=== PATIENT | female | born 1935 | race Caucasian/White ===

== ENCOUNTER → 2018-06-24 11:15 | Outpatient (CLI) | payer MEDICARE, SELFPAY ==
--- NOTE | 2018-06-24 | DI.MG.S_ITS ---
BILATERAL DIGITAL SCREENING MAMMOGRAM 3D/2D WITH CAD: 06/24/2018 CLINICAL: Routine screening. Comparison is made to exams dated: 11/16/2014 mammogram, 11/13/2012 mammogram, and 10/13/2011 mammogram - [facility]. The tissue of both breasts is predominantly fatty. Current study was also evaluated with a Computer Aided Detection (CAD) system. There are benign calcifications in the right breast. There also are benign vascular calcifications in the left breast. There is a mole marker on the left breast. No significant masses, calcifications, or other findings are seen in either breast. There has been no significant interval change. IMPRESSION: BENIGN There is no mammographic evidence of malignancy. A 1 year screening mammogram is recommended. This exam was interpreted at Station ID: [id number]. NOTE: For mammograms, a report in lay terms will be sent to the patient. Approximately 15% of breast malignancies will not be visualized mammographically. In the management of a palpable breast mass, a negative mammogram must not discourage biopsy of a clinically suspicious lesion. Electronically Signed By: Andrew meneses/nick:06/25/2018 03:34:40 letter sent: Normal Exam ACR BI-RADS Category 2: Benign Finding(s) 3342F
== END ==
PROVIDERS: PCP Internal Medicine; Visit Provider Internal Medicine
DX: Z12.31 Encounter for screening mammogram for malignant neoplasm of breast (principal)
CPT/HCPCS: 77063; 77067

== ENCOUNTER → 2019-01-15 09:09 | Outpatient (CLI) | payer MEDICARE, SELFPAY ==
--- NOTE | 2019-01-15 | DI.ECHO.S_ITS ---
[facility]---------+ [facility] +---------+ : : [address] : : : : [id number] : : : : Phone: [phone]---------+ Echocardiogram Report + + :Name: BONNIE BARRIOS Study Date: 01/15/2019 Height: 65 in : :[facility] Weight: 150 lb : : Gender: Female BSA: 1.8 m2 : :: 1935 Age: 83 yrs BP: 122/70 mmHg: :Reason For Study: MURMUR : : Performed By: Iona Mcmahan : :Referring: NEGAR GALICIA L : + + Interpretation Summary 1) Normal left ventricular thickness, size, wall motion, and systolic function (EF 60-65%). 2) Normal right ventricular size and function. 3) Age related calcification of the aortic valve but no significant valvular stenosis or regurgitation present. 4) No prior Echo available for comparison. Procedure: A two-dimensional transthoracic echocardiogram with color flow and Doppler was performed. The study quality was technically adequate. There is no prior echocardiogram noted for this patient. The heart rate ranged between 62-68 bpm during the study. Left Ventricle: The left ventricle is normal in size, wall thickness, and systolic function without any focal wall motion abnormalities. A false chord is noted (normal variant). The ejection fraction is estimated to be 60-65%. Right Ventricle: The right ventricle is normal in size and function. Atria: The left atrial size is normal. Right atrium is small. There is no Doppler evidence for an interatrial shunt. Mitral Valve: The mitral valve leaflets appear mildly thickened, but open well. There is trace mitral regurgitation. Aortic Valve: The aortic valve is trileaflet. The aortic valve is mildly calcified. There is no aortic valve stenosis. No aortic regurgitation is present. Tricuspid Valve: The tricuspid valve is normal in structure and function. There is a trace or physiologic amount of tricuspid regurgitation. The right ventricular systolic pressure is estimated to be at least 23 mmHg based on an estimated right atrial pressure of 3 mm Hg. Pulmonic Valve: The pulmonic valve leaflets are thin and pliable; valve motion is normal. There is a trace or physiologic amount of pulmonic regurgitation. Great Vessels: The aortic root is normal size. The ascending aorta is normal in size. The aortic arch is normal in size. The pulmonary artery is not well visualized, but is probably normal size. The IVC is of normal diameter and collapses less than 50% with a sniff. This suggests a right atrial pressure of 8 mm Hg. Pericardium/ Pleura There is no pericardial effusion. There is no pleural effusion. MMode/2D Measurements & Calculations LVIDd: 3.5 cm LVOT diam: 2.0 cm LVIDs: 2.3 cm Ao root diam: 2.8 cm FS: 35.2 % asc Aorta Diam: 3.0 cm IVSd: 0.81 cm Ao Arch Diam (distal): 2.6 cm LVPWd: 0.61 cm LV samano. diameter/BSA (cm/m^2): 2.0 LV sys. diameter/BSA (cm/m^2): 1.3 LA A2 area: 14.0 cm2 RA long axis: 3.5 cm LA A4 area: 13.2 cm2 RA area: 9.0 cm2 LA length (vol): 4.2 cm RA vol: 19.3 ml LA vol: 37.1 ml RA : 11.0 ml/m2 LA vol index: 21.2 ml/m2 IVC diam: 1.2 cm RVD1 (basal): 3.2 cm TAPSE: 2.2 cm Doppler Measurements & Calculations Ao V2 max: 116.1 cm/sec LVOT Max Ludwig: 101.7 cm/sec Ao V2 mean: 79.4 cm/sec LV V1 max P.1 mmHg Ao max P.4 mmHg LV V1 VTI: 23.4 cm Ao mean P.8 mmHg DALILA(I,D): 2.7 cm2 Ao V2 VTI: 26.4 cm DALILA(V,D): 2.7 cm2 sev ratio: 0.89 DALILA indexed to BSA (cm^2/m^2): 1.5 MV E max ludwig: 70.1 cm/sec TR max ludwig: 225.0 cm/sec MV A max ludwig: 104.6 cm/sec TR max P.3 mmHg MV E/A: 0.67 Med Peak E' Ludwig: 6.2 cm/sec E/E' med: 11.3 Lat Peak E' Ludwig: 7.9 cm/sec E/E' lat: 8.9 E/e' average: 10.1 MV dec time: 0.25 sec SV(LVOT): 71.5 ml Reading Physician:02:04 PM
== END ==
PROVIDERS: PCP Internal Medicine; Visit Provider Internal Medicine
DX: R01.1 Cardiac murmur, unspecified (principal)
CPT/HCPCS: 93306

== ENCOUNTER → 2019-06-11 07:30 | Outpatient (CLI) | payer MEDICARE, SELFPAY ==
[2019-06-11 07:55] LABS: Add Manual Diff / Slide Review NO; Basophils Absolute Auto 0 /uL (0-100); Basophils Percent Auto 0.6 % (0-2); Eosinophils Absolute Auto 500 /uL (0-450); Eosinophils Percent Auto 7.2 % (2-4); Hematocrit 44.9 % (36-46); Hemoglobin 14.7 g/dL (12.0-16.0); Lymphocytes Absolute Auto 2300 /uL (1100-4500); Lymphocytes Percent Auto 32.6 % (25-40); Mean Corpuscular HGB Conc 32.6 % (30-36); Mean Corpuscular Hemoglobin 30.4 PG (26-34); Mean Corpuscular Volume 93.2 fL (80-100); Monocytes Absolute Auto 400 /uL (0-900); Neutrophils Absolute Auto 3800 /uL (1500-7000); Neutrophils Percent Auto 53.6 % (50-75); Platelet Count 263 X10^3/uL (150-400); Red Blood Cell Count 4.82 X10^6/uL (4.0-5.2); Red Cell Distribution Width 13.9 % (11.6-14.8)
[2019-06-11 08:06] LABS: Alanine Aminotransferase 32 IU/L (9-52); Albumin 4.1 g/dL (3.5-5.0); Albumin Globulin Ratio 1.4 (1.0-2.8); Alkaline Phosphatase 73 U/L (38-126); Aspartate Aminotransferase 28 IU/L (14-36); BUN Creatinine Ratio 21.4 (6-22); Bilirubin Total 0.5 mg/dL (0.2-1.3); Blood Urea Nitrogen 15 mg/dL (7-17); Calcium 9.4 mg/dL (8.4-10.2); Carbon Dioxide 29 mmol/L (22-32); Chloride 105 mmol/L (98-107); Cholesterol 158 mg/dL (140-199); Estimated Glomerular Filt Rate > 60.0 mL/min (>60); Glucose 100 mg/dL (80-110); HDL Cholesterol 58 mg/dL (40-60); HEMOLYSIS < 15 (0-50); LDL Cholesterol Calculated 83 mg/dL (<100); Potassium 4.5 mmol/L (3.4-5.1); Sodium 141 mmol/L (137-145); Total Protein 7.1 g/dL (6.3-8.2); Triglycerides 84 mg/dL (35-150)
[2019-06-11 08:36] LABS: Thyroid Stimulating Hormone 2.15 uIU/mL (0.47-4.68)
== END ==
PROVIDERS: PCP Nurse Practitioner; Visit Provider Nurse Practitioner
DX: E03.9 Hypothyroidism, unspecified (principal); E78.00 Pure hypercholesterolemia, unspecified
CPT/HCPCS: 36415; 80053; 80061; 84443; 85025

== ENCOUNTER → 2019-06-25 12:07 | Outpatient (CLI) | payer MEDICARE, SELFPAY ==
--- NOTE | 2019-06-25 12:10 | DI.MG.S_ITS ---
BILATERAL DIGITAL SCREENING MAMMOGRAM 3D/2D WITH CAD: 06/25/2019 CLINICAL: Routine screening. Comparison is made to exams dated: 06/24/2018 mammogram, 11/16/2014 mammogram, and 11/13/2012 mammogram - [facility]. There are scattered fibroglandular elements in both breasts. Current study was also evaluated with a Computer Aided Detection (CAD) system. There are benign calcifications in the right breast. There also are benign vascular calcifications in the left breast. There is a mole marker on the left breast. No significant masses, calcifications, or other findings are seen in either breast. There has been no significant interval change. IMPRESSION: There is no mammographic evidence of malignancy. A 1 year screening mammogram is recommended. This exam was interpreted at Station ID: [id number]. NOTE: For mammograms, a report in lay terms will be sent to the patient. Approximately 15% of breast malignancies will not be visualized mammographically. In the management of a palpable breast mass, a negative mammogram must not discourage biopsy of a clinically suspicious lesion. Electronically Signed By: Ismael iqbal/nick:06/25/2019 14:24:06 letter sent: Normal Exam ACR BI-RADS Category 2: Benign Finding(s) 3342F
== END ==
PROVIDERS: PCP Nurse Practitioner; Visit Provider Nurse Practitioner
DX: Z12.31 Encounter for screening mammogram for malignant neoplasm of breast (principal); N95.8 Other specified menopausal and perimenopausal disorders; Z13.820 Encounter for screening for osteoporosis
CPT/HCPCS: 77063; 77067; 77080

== ENCOUNTER 2019-08-12 13:00 | Outpatient (RCR) | payer MEDICARE, SELFPAY ==
--- NOTE | 2019-07-14 18:36 | PT.OIE ---
Visit Care Team Role Provider Type ROMAIN Bonilla Attending Provider [employer] Attendant Primary Care Provider Specialty: Family Practice Address: [address] [place] [address], [id number] Email: [email or web address] Physical Therapy Initial Evaluation PT-OP-A Visit Information Start: 07/14/19 18:01 Freq: Status: Active Protocol: Document 07/14/19 13:45 HH (Rec: 07/14/19 18:25 HH [email or web address]) Out-Patient Physical Therapy Visit Information Visit Information Visit Type Initial Evaluation Visit Start Time 13:45 Visit Stop Time 14:32 Total Visit Minutes 47 Visit Number 11/22 Number of FOOD STAND MANAGER Visits 0 Evaluation Information Evaluation Date 07/14/19 Precautions Precautions Osteopenia thyroid disorder PT-OP-B Current Condition Start: 07/14/19 18:01 Freq: Status: Active Protocol: Document 07/14/19 18:25 HH (Rec: 07/14/19 18:36 HH [email or web address]) Current Condition History of Current Condition Onset Date 2 months ago Current Complaints B shoulder pain R>L, radiating arm pain and numbness, disturbed sleep History of Current Condition Pt is a 83yo female that presents to clinic with c/o B shoulder pain R>L, radiating arm pain and numbness, disturbed sleep since 2 months ago. Pt explained she does not know why it started. She described her symptoms is sporadic and only happens during sleep. Her pain often started from top of both shoulders and radiated to top/ bottom of her arms, along with numbness around her 2nd to 4th finger tips. R side seems to be worse and she has to get up and shake it off. She stated her symptoms tend to go away in 10-15 minutes, but also take up to 2 hours occasionally. She tried changing positions/ adding pillows but nothing helped so far. She is overall fairly active who participates bodyweight strengthening class couple times a week. Treatment Goals Patient/Caregiver Goals 1. To have a full night of sleep without waking up 2. To be symptoms free. Personal Factors Other Personal Factors That May Effect Osteopenia, thyroid disorder. Therapy/Recovery PT-OP-C Subjective Start: 07/14/19 18:01 Freq: Status: Active Protocol: Document 07/14/19 13:45 HH (Rec: 07/14/19 18:25 [email or web address]) OP-PT Subjective Patient Comments Patient Comments i just want to sleep better Patient Questionnaires Neck Disability Index NDI Score 6 Neck Disability Index Impairment 1 to 19% Impaired (Score 1-9) Quick Dash- Upper Extremity Quick Dash UE Score 45.45 Quick Dash UE Impairment 40 to 59% Impaired (Score 40- 59) OP-PT Pain Assessment Location B shoulders and arms Intensity 7 Scale Used Numeric (1 - 10) Description Pinching,Radiating,Tingling Frequency Daily Pain Aggravating Factors Prolonged Bedrest Other Pain Aggravating Factors sleep Pain Alleviating Factors Exercise PT-OP-E Functional Tests Start: 07/14/19 18:01 Freq: Status: Active Protocol: Document 07/14/19 18:25 HH (Rec: 07/14/19 18:36 [email or web address]) Functional Tests Apley's Scratch Test Action 2- Left T2 Action 2- Right T2 Action 3- Left L1 Action 3- Right L2 PT-OP-H Neuro Start: 07/14/19 18:01 Freq: Status: Active Protocol: Document 07/14/19 13:45 HH (Rec: 07/14/19 18:25 [email or web address]) Sensation Evaluation Gross Sensation Gross Sensation WNL Deep Tendon Reflex & Clonus Assessment Deep Tendon Reflex Bilateral Brachioradialis Deep Tendon Reflex 2+ Normal Bilateral Tricep Deep Tendon Reflex 2+ Normal Bilateral Bicep Deep Tendon Reflex 2+ Normal PT-OP-J Posture/Palpation/Skin Start: 07/14/19 18:01 Freq: Status: Active Protocol: Document 07/14/19 13:45 HH (Rec: 07/14/19 18:25 [email or web address]) Posture Evaluation Position Standing Evaluation View Anterior Shoulder Posture (R) Rounded Scapula Posture (R) Protracted PT-OP-K Range of Motion Start: 07/14/19 18:01 Freq: Status: Active Protocol: Document 07/14/19 13:45 HH (Rec: 07/14/19 18:25 [email or web address]) Cervical Spine Range of Motion Cervical Spine Active Degrees Testing Position Sitting Comments AROM= WFL without pain overpressure at end range = firm end feel without symptoms Shoulder Goniometric Range of Motion Shoulder Right Active Shoulder ROM WFL Yes Left Active Shoulder ROM WFL Yes Testing Position Sitting PT-OP-L Special Tests Start: 07/14/19 18:01 Freq: Status: Active Protocol: Document 07/14/19 13:45 HH (Rec: 07/14/19 18:25 [email or web address]) Special Tests Cervical Spine Special Tests Upper Limb Tension Test Test Results +ve B (median and radial nerve glide) Comments R worse than L, unable tolerate with head movements. Traction Test Results -ve B Spurling's Test Test Results -ve B Foraminal Compression Test Results -ve B PT-OP-M Strength Start: 07/14/19 18:01 Freq: Status: Active Protocol: Document 07/14/19 13:45 HH (Rec: 07/14/19 18:25 [email or web address]) Cervical Spine Strength Cervical Spine Manual Muscle Testing Testing Position Sitting Flexion (C1-2) 4+ Good+ Extension 4+ Good+ Rotation Left 4+ Good+ Rotation Right 4+ Good+ Shoulder Strength Shoulder Manual Muscle Testing Right Flexion 4+ Good+ Extension 4+ Good+ Abduction (C5) 4+ Good+ Adduction 4+ Good+ Left Flexion 4+ Good+ Extension 4+ Good+ Abduction (C5) 4+ Good+ Adduction 4+ Good+ PT-OP-Q Treatments Start: 07/14/19 18:01 Freq: Status: Active Protocol: Document 07/14/19 13:45 HH (Rec: 07/14/19 18:25 [email or web address]) Manual Therapy Treatment Nerve Glides radial nerve glide Details slow cervical lateral flexion Body Position Sitting Reps/Duration 3 secs x 10 Comments nerve glide as rebecca Median nerve glide Nerve hand against wall Details slow cervical lateral flexion Body Position Sitting Reps/Duration 3 secs x 10 Comments nerve glide as rebecca PT-OP-T Assessment and Plan Start: 07/14/19 18:01 Freq: Status: Active Protocol: Document 07/14/19 13:45 (Rec: 07/14/19 18:25 [email or web address]) Physical Therapy Assessment Rehab Potential Rehabilitation Potential Excellent Evaluation Complexity Number of Personal Factors/Comorbidities 1-2 Number of Body Systems Impaired 1-2 Clinical Presentation at Evaluation Stable Impairments Impairments Functional Activities, Functional Mobility,Pain, Posture Goals Upper limb tension test Impairment +ve ULTT bilaterally [facility] Goal (LTG) Pt will be negative on bilateral ULTT for both median and radial nerves to reduce her neural sensitivity. LTG Duration 6 weeks Sleep disturbance Impairment Pt is unable to sleep >2 hours a night without pain and numbness Short Term Goal (STG) Pt will be able to sleep >4 hours a night without pain and numbness at her shoulders and arms STG Duration 3 weeks [facility] Goal (LTG) Pt will be able to sleep >6 hours a night without pain and numbness at her shoulders and arms LTG Duration 6 weeks Quickdash Impairment Pt scores 45.45 (40-59% impairments) on Quickdash Short Term Goal (STG) Pt will score <30 on quickdash to improve quality of life STG Duration 3 weeks [facility] Goal (LTG) Pt will score <20 on quickdash to improve quality of life LTG Duration 6 weeks Assessment Summary Assessment Pt is a low complexity with radiating shoulder and arm pain during sleep. Upon assessment, pt presents increased B neural sensitivity with limited neural mobility. Her pain was only able to be reproduced through both median and radial nerves during Upper Limb Tension Test. But pt was negative for cervical compression, spurling tests. Pt's overall cervical and shoulders mobility and strength appeared to be WNL without symptoms. Her primary c/o at this point is disturbed sleep, but she will still be a good candidate for skilled physical therapy to reduce her neural sensitivity and improve neural mobility so pt could improve her sleep quality. Physical Therapy Plan Frequency and Duration Frequency of Treatment 1x/Week Duration of Treatment 6 weeks Plan of Care Start Date 07/14/19 Plan of Care End Date 08/28/19 Therapeutic Interventions Therapeutic Interventions Home Exercise Program,Joint Mobilizations,Manual Therapy, Neuromuscular Re-education, Patient/Caregiver Education, Self-Care/Home Management,Soft Tissue Mobilization, Therapeutic Activities, Therapeutic Exercises Modalities Cold Pack/Ice Massage,Electric Stimulation,Hot Packs, Infrared Therapy,Traction- Mechanical,Ultrasound Next Visit Focus/Plan Next Note Type Treatment Note Next Visit Plan review HEP reassess pt's symptoms and sleep quality overall shoulder mobility ex, strengthening as rebecca
--- NOTE | 2019-07-14 18:39 | PT.OPPOC ---
Visit Care Team Role Provider Type ROMAIN Bonilla Attending Provider [employer] Roller Handler Primary Care Provider Specialty: Family Practice Address: [address] [place] [address], [id number] Email: [email or web address] Plan Of Care PT-OP-T Assessment and Plan Start: 07/14/19 18:01 Freq: Status: Active Protocol: Document 07/14/19 13:45 HH (Rec: 07/14/19 18:25 HH [email or web address]) Physical Therapy Assessment Rehab Potential Rehabilitation Potential Excellent Evaluation Complexity Number of Personal Factors/Comorbidities 1-2 Number of Body Systems Impaired 1-2 Clinical Presentation at Evaluation Stable Impairments Impairments Functional Activities, Functional Mobility,Pain, Posture Goals Upper limb tension test Impairment +ve ULTT bilaterally Press Pipe Inspector Goal (LTG) Pt will be negative on bilateral ULTT for both median and radial nerves to reduce her neural sensitivity. LTG Duration 6 weeks Sleep disturbance Impairment Pt is unable to sleep >2 hours a night without pain and numbness Short Term Goal (STG) Pt will be able to sleep >4 hours a night without pain and numbness at her shoulders and arms STG Duration 3 weeks Press Pipe Inspector Goal (LTG) Pt will be able to sleep >6 hours a night without pain and numbness at her shoulders and arms LTG Duration 6 weeks Quickdash Impairment Pt scores 45.45 (40-59% impairments) on Quickdash Short Term Goal (STG) Pt will score <30 on quickdash to improve quality of life STG Duration 3 weeks [facility] Goal (LTG) Pt will score <20 on quickdash to improve quality of life LTG Duration 6 weeks Assessment Summary Assessment Pt is a low complexity with radiating shoulder and arm pain during sleep. Upon assessment, pt presents increased B neural sensitivity with limited neural mobility. Her pain was only able to be reproduced through both median and radial nerves during Upper Limb Tension Test. But pt was negative for cervical compression, spurling tests. Pt's overall cervical and shoulders mobility and strength appeared to be WNL without symptoms. Her primary c/o at this point is disturbed sleep, but she will still be a good candidate for skilled physical therapy to reduce her neural sensitivity and improve neural mobility so pt could improve her sleep quality. Physical Therapy Plan Frequency and Duration Frequency of Treatment 1x/Week Duration of Treatment 6 weeks Plan of Care Start Date 07/14/19 Plan of Care End Date 08/28/19 Therapeutic Interventions Therapeutic Interventions Home Exercise Program,Joint Mobilizations,Manual Therapy, Neuromuscular Re-education, Patient/Caregiver Education, Self-Care/Home Management,Soft Tissue Mobilization, Therapeutic Activities, Therapeutic Exercises Modalities Cold Pack/Ice Massage,Electric Stimulation,Hot Packs, Infrared Therapy,Traction- Mechanical,Ultrasound Next Visit Focus/Plan Next Note Type Treatment Note Next Visit Plan review HEP reassess pt's symptoms and sleep quality overall shoulder mobility ex, strengthening as rebecca Plan of Care Dates Plan of Care Start Date 07/14/19 Plan of Care End Date 08/28/19 Please Sign and Return: I have reviewed this Plan of Care and certify that the skilled therapy services above are required to meet the patient?s needs. Physician Signature Date Printed Name and Credentials Clinical Instructor Signature Printed Name and Credentials
--- NOTE | 2019-07-14 18:39 | PT.OTN ---
Physical Therapy Treatment Note PT-OP-A Visit Information Start: 07/14/19 18:01 Freq: Status: Active Protocol: Document 07/14/19 13:45 HH (Rec: 07/14/19 18:25 [email or web address]) Out-Patient Physical Therapy Visit Information Visit Information Visit Type Initial Evaluation Visit Start Time 13:45 Visit Stop Time 14:32 Total Visit Minutes 47 Visit Number 11/22 Number of STEAM POWER PLANT OPERATOR Visits 0 Evaluation Information Evaluation Date 07/14/19 Precautions Precautions Osteopenia thyroid disorder PT-OP-B Current Condition Start: 07/14/19 18:01 Freq: Status: Active Protocol: Document 07/14/19 18:25 HH (Rec: 07/14/19 18:36 HH [email or web address]) Current Condition History of Current Condition Onset Date 2 months ago Current Complaints B shoulder pain R>L, radiating arm pain and numbness, disturbed sleep History of Current Condition Pt is a 83yo female that presents to clinic with c/o B shoulder pain R>L, radiating arm pain and numbness, disturbed sleep since 2 months ago. Pt explained she does not know why it started. She described her symptoms is sporadic and only happens during sleep. Her pain often started from top of both shoulders and radiated to top/ bottom of her arms, along with numbness around her 2nd to 4th finger tips. R side seems to be worse and she has to get up and shake it off. She stated her symptoms tend to go away in 10-15 minutes, but also take up to 2 hours occasionally. She tried changing positions/ adding pillows but nothing helped so far. She is overall fairly active who participates bodyweight strengthening class couple times a week. Treatment Goals Patient/Caregiver Goals 1. To have a full night of sleep without waking up 2. To be symptoms free. Personal Factors Other Personal Factors That May Effect Osteopenia, thyroid disorder. Therapy/Recovery PT-OP-C Subjective Start: 07/14/19 18:01 Freq: Status: Active Protocol: Document 07/14/19 13:45 HH (Rec: 07/14/19 18:25 [email or web address]) OP-PT Subjective Patient Comments Patient Comments i just want to sleep better Patient Questionnaires Neck Disability Index NDI Score 6 Neck Disability Index Impairment 1 to 19% Impaired (Score 1-9) Quick Dash- Upper Extremity Quick Dash UE Score 45.45 Quick Dash UE Impairment 40 to 59% Impaired (Score 40- 59) OP-PT Pain Assessment Location B shoulders and arms Intensity 7 Scale Used Numeric (1 - 10) Description Pinching,Radiating,Tingling Frequency Daily Pain Aggravating Factors Prolonged Bedrest Other Pain Aggravating Factors sleep Pain Alleviating Factors Exercise PT-OP-E Functional Tests Start: 07/14/19 18:01 Freq: Status: Active Protocol: Document 07/14/19 18:25 HH (Rec: 07/14/19 18:36 HH [email or web address]) Functional Tests Apley's Scratch Test Action 2- Left T2 Action 2- Right T2 Action 3- Left L1 Action 3- Right L2 PT-OP-H Neuro Start: 07/14/19 18:01 Freq: Status: Active Protocol: Document 07/14/19 13:45 HH (Rec: 07/14/19 18:25 [email or web address]) Sensation Evaluation Gross Sensation Gross Sensation WNL Deep Tendon Reflex & Clonus Assessment Deep Tendon Reflex Bilateral Brachioradialis Deep Tendon Reflex 2+ Normal Bilateral Tricep Deep Tendon Reflex 2+ Normal Bilateral Bicep Deep Tendon Reflex 2+ Normal PT-OP-J Posture/Palpation/Skin Start: 07/14/19 18:01 Freq: Status: Active Protocol: Document 07/14/19 13:45 HH (Rec: 07/14/19 18:25 [email or web address]) Posture Evaluation Position Standing Evaluation View Anterior Shoulder Posture (R) Rounded Scapula Posture (R) Protracted PT-OP-K Range of Motion Start: 07/14/19 18:01 Freq: Status: Active Protocol: Document 07/14/19 13:45 HH (Rec: 07/14/19 18:25 [email or web address]) Cervical Spine Range of Motion Cervical Spine Active Degrees Testing Position Sitting Comments AROM= WFL without pain overpressure at end range = firm end feel without symptoms Shoulder Goniometric Range of Motion Shoulder Right Active Shoulder ROM WFL Yes Left Active Shoulder ROM WFL Yes Testing Position Sitting PT-OP-L Special Tests Start: 07/14/19 18:01 Freq: Status: Active Protocol: Document 07/14/19 13:45 HH (Rec: 07/14/19 18:25 [email or web address]) Special Tests Cervical Spine Special Tests Upper Limb Tension Test Test Results +ve B (median and radial nerve glide) Comments R worse than L, unable tolerate with head movements. Traction Test Results -ve B Spurling's Test Test Results -ve B Foraminal Compression Test Results -ve B PT-OP-M Strength Start: 07/14/19 18:01 Freq: Status: Active Protocol: Document 07/14/19 13:45 HH (Rec: 07/14/19 18:25 [email or web address]) Cervical Spine Strength Cervical Spine Manual Muscle Testing Testing Position Sitting Flexion (C1-2) 4+ Good+ Extension 4+ Good+ Rotation Left 4+ Good+ Rotation Right 4+ Good+ Shoulder Strength Shoulder Manual Muscle Testing Right Flexion 4+ Good+ Extension 4+ Good+ Abduction (C5) 4+ Good+ Adduction 4+ Good+ Left Flexion 4+ Good+ Extension 4+ Good+ Abduction (C5) 4+ Good+ Adduction 4+ Good+ PT-OP-Q Treatments Start: 07/14/19 18:01 Freq: Status: Active Protocol: Document 07/14/19 13:45 HH (Rec: 07/14/19 18:25 [email or web address]) Manual Therapy Treatment Nerve Glides radial nerve glide Details slow cervical lateral flexion Body Position Sitting Reps/Duration 3 secs x 10 Comments nerve glide as rebecca Median nerve glide Nerve hand against wall Details slow cervical lateral flexion Body Position Sitting Reps/Duration 3 secs x 10 Comments nerve glide as rebecca PT-OP-T Assessment and Plan Start: 07/14/19 18:01 Freq: Status: Active Protocol: Document 07/14/19 13:45 HH (Rec: 07/14/19 18:25 [email or web address]) Physical Therapy Assessment Rehab Potential Rehabilitation Potential Excellent Evaluation Complexity Number of Personal Factors/Comorbidities 1-2 Number of Body Systems Impaired 1-2 Clinical Presentation at Evaluation Stable Impairments Impairments Functional Activities, Functional Mobility,Pain, Posture Goals Upper limb tension test Impairment +ve ULTT bilaterally Beef Farmer Goal (LTG) Pt will be negative on bilateral ULTT for both median and radial nerves to reduce her neural sensitivity. LTG Duration 6 weeks Sleep disturbance Impairment Pt is unable to sleep >2 hours a night without pain and numbness Short Term Goal (STG) Pt will be able to sleep >4 hours a night without pain and numbness at her shoulders and arms STG Duration 3 weeks Correction Goal (LTG) Pt will be able to sleep >6 hours a night without pain and numbness at her shoulders and arms LTG Duration 6 weeks Quickdash Impairment Pt scores 45.45 (40-59% impairments) on Quickdash Short Term Goal (STG) Pt will score <30 on quickdash to improve quality of life STG Duration 3 weeks Beef Farmer Goal (LTG) Pt will score <20 on quickdash to improve quality of life LTG Duration 6 weeks Assessment Summary Assessment Pt is a low complexity with radiating shoulder and arm pain during sleep. Upon assessment, pt presents increased B neural sensitivity with limited neural mobility. Her pain was only able to be reproduced through both median and radial nerves during Upper Limb Tension Test. But pt was negative for cervical compression, spurling tests. Pt's overall cervical and shoulders mobility and strength appeared to be WNL without symptoms. Her primary c/o at this point is disturbed sleep, but she will still be a good candidate for skilled physical therapy to reduce her neural sensitivity and improve neural mobility so pt could improve her sleep quality. Physical Therapy Plan Frequency and Duration Frequency of Treatment 1x/Week Duration of Treatment 6 weeks Plan of Care Start Date 07/14/19 Plan of Care End Date 08/28/19 Therapeutic Interventions Therapeutic Interventions Home Exercise Program,Joint Mobilizations,Manual Therapy, Neuromuscular Re-education, Patient/Caregiver Education, Self-Care/Home Management,Soft Tissue Mobilization, Therapeutic Activities, Therapeutic Exercises Modalities Cold Pack/Ice Massage,Electric Stimulation,Hot Packs, Infrared Therapy,Traction- Mechanical,Ultrasound Next Visit Focus/Plan Next Note Type Treatment Note Next Visit Plan review HEP reassess pt's symptoms and sleep quality overall shoulder mobility ex, strengthening as rebecca
--- NOTE | 2019-07-21 12:27 | PT.OTN ---
Physical Therapy Treatment Note PT-OP-A Visit Information Start: 07/14/19 18:01 Freq: Status: Active Protocol: Document 07/21/19 10:35 HH (Rec: 07/21/19 12:27 [email or web address]) Out-Patient Physical Therapy Visit Information Visit Information Visit Type Treatment Note Visit Start Time 10:35 Visit Stop Time 11:20 Total Visit Minutes 45 Visit Number 12/23 Number of DESIGNATED BROKER Visits 0 PT-OP-B Current Condition Start: 07/14/19 18:01 Freq: Status: Active Protocol: Document 07/14/19 18:25 HH (Rec: 07/14/19 18:36 HH [email or web address]) Current Condition History of Current Condition Onset Date 2 months ago Current Complaints B shoulder pain R>L, radiating arm pain and numbness, disturbed sleep History of Current Condition Pt is a 83yo female that presents to clinic with c/o B shoulder pain R>L, radiating arm pain and numbness, disturbed sleep since 2 months ago. Pt explained she does not know why it started. She described her symptoms is sporadic and only happens during sleep. Her pain often started from top of both shoulders and radiated to top/ bottom of her arms, along with numbness around her 2nd to 4th finger tips. R side seems to be worse and she has to get up and shake it off. She stated her symptoms tend to go away in 10-15 minutes, but also take up to 2 hours occasionally. She tried changing positions/ adding pillows but nothing helped so far. She is overall fairly active who participates bodyweight strengthening class couple times a week. Treatment Goals Patient/Caregiver Goals 1. To have a full night of sleep without waking up 2. To be symptoms free. Personal Factors Other Personal Factors That May Effect Osteopenia, thyroid disorder. Therapy/Recovery PT-OP-C Subjective Start: 07/14/19 18:01 Freq: Status: Active Protocol: Document 07/21/19 10:35 HH (Rec: 07/21/19 12:27 [email or web address]) OP-PT Subjective Patient Comments Patient Comments My first few nights after HEP and visit were pretty good without any numbness and tinglings on my arms. But the 4th night i had this episode with intense weakness and numbness on my R arm and R leg as well. I have never felt like that before. PT-OP-E Functional Tests Start: 07/14/19 18:01 Freq: Status: Active Protocol: Document 07/14/19 18:25 HH (Rec: 07/14/19 18:36 HH [email or web address]) Functional Tests Apley's Scratch Test Action 2- Left T2 Action 2- Right T2 Action 3- Left L1 Action 3- Right L2 PT-OP-H Neuro Start: 07/14/19 18:01 Freq: Status: Active Protocol: Document 07/14/19 13:45 HH (Rec: 07/14/19 18:25 HH [email or web address]) Sensation Evaluation Gross Sensation Gross Sensation WNL Deep Tendon Reflex & Clonus Assessment Deep Tendon Reflex Bilateral Brachioradialis Deep Tendon Reflex 2+ Normal Bilateral Tricep Deep Tendon Reflex 2+ Normal Bilateral Bicep Deep Tendon Reflex 2+ Normal PT-OP-J Posture/Palpation/Skin Start: 07/14/19 18:01 Freq: Status: Active Protocol: Document 07/14/19 13:45 HH (Rec: 07/14/19 18:25 HH [email or web address]) Posture Evaluation Position Standing Evaluation View Anterior Shoulder Posture (R) Rounded Scapula Posture (R) Protracted PT-OP-K Range of Motion Start: 07/14/19 18:01 Freq: Status: Active Protocol: Document 07/14/19 13:45 HH (Rec: 07/14/19 18:25 HH [email or web address]) Cervical Spine Range of Motion Cervical Spine Active Degrees Testing Position Sitting Comments AROM= WFL without pain overpressure at end range = firm end feel without symptoms Shoulder Goniometric Range of Motion Shoulder Right Active Shoulder ROM WFL Yes Left Active Shoulder ROM WFL Yes Testing Position Sitting PT-OP-L Special Tests Start: 07/14/19 18:01 Freq: Status: Active Protocol: Document 07/14/19 13:45 HH (Rec: 07/14/19 18:25 [email or web address]) Special Tests Cervical Spine Special Tests Upper Limb Tension Test Test Results +ve B (median and radial nerve glide) Comments R worse than L, unable tolerate with head movements. Traction Test Results -ve B Spurling's Test Test Results -ve B Foraminal Compression Test Results -ve B PT-OP-M Strength Start: 07/14/19 18:01 Freq: Status: Active Protocol: Document 07/14/19 13:45 HH (Rec: 07/14/19 18:25 [email or web address]) Cervical Spine Strength Cervical Spine Manual Muscle Testing Testing Position Sitting Flexion (C1-2) 4+ Good+ Extension 4+ Good+ Rotation Left 4+ Good+ Rotation Right 4+ Good+ Shoulder Strength Shoulder Manual Muscle Testing Right Flexion 4+ Good+ Extension 4+ Good+ Abduction (C5) 4+ Good+ Adduction 4+ Good+ Left Flexion 4+ Good+ Extension 4+ Good+ Abduction (C5) 4+ Good+ Adduction 4+ Good+ PT-OP-Q Treatments Start: 07/14/19 18:01 Freq: Status: Active Protocol: Document 07/21/19 10:35 HH (Rec: 07/21/19 12:27 [email or web address]) Therapeutic Exercises Sitting Exercises Neck stretch Sitting Exercise Name UT stretch Side bilateral Reps/Minutes 20 secs hold x5 on each side Comments with scap depression and shd ext OH paramjit Sitting Exercise Name warm up Side bilateral Reps/Minutes 4 mins Comments full shd ROM Standing Exercises shd shrug Standing Exercise Name unilateral shd shrug Side bilateral Equipment Used 3 lb ball Reps/Minutes 10 x2 Comments cues on full elevation and depression standing neck stretch Standing Exercise Name c/s lateral flexion Side bilateral Equipment Used 3 lbs ball in hand Reps/Minutes 10 x 3 Manual Therapy Treatment Nerve Glides radial nerve glide Details slow cervical lateral flexion Body Position Sitting Reps/Duration 3 secs x 10 Comments nerve glide as rebecca Median nerve glide Nerve hand against wall Details slow cervical lateral flexion Body Position Sitting Reps/Duration 3 secs x 10 Comments nerve glide as rebecca assisted elbow extension PT-OP-T Assessment and Plan Start: 07/14/19 18:01 Freq: Status: Active Protocol: Document 07/21/19 10:35 (Rec: 07/21/19 12:27 [email or web address]) Physical Therapy Assessment Goals Upper limb tension test Impairment +ve ULTT bilaterally Rotary Shear Operator Goal (LTG) Pt will be negative on bilateral ULTT for both median and radial nerves to reduce her neural sensitivity. LTG Duration 6 weeks Sleep disturbance Impairment Pt is unable to sleep >2 hours a night without pain and numbness Short Term Goal (STG) Pt will be able to sleep >4 hours a night without pain and numbness at her shoulders and arms STG Duration 3 weeks Rotary Shear Operator Goal (LTG) Pt will be able to sleep >6 hours a night without pain and numbness at her shoulders and arms LTG Duration 6 weeks Quickdash Impairment Pt scores 45.45 (40-59% impairments) on Quickdash Short Term Goal (STG) Pt will score <30 on quickdash to improve quality of life STG Duration 3 weeks Rotary Shear Operator Goal (LTG) Pt will score <20 on quickdash to improve quality of life LTG Duration 6 weeks Assessment Summary Assessment Pt has new onset of neurological symptoms on R LE and R UE. Measured her BP today was maintained at 140- 150/70-80 which is out of her baseline 120s/60s as she stated. Recommended her to closely monitor her BP at home 2x/day. Added HEP with neck stretch. Pt cont to have increase neural sensitivity on R median nerve. Physical Therapy Plan Next Visit Focus/Plan Next Note Type Treatment Note Next Visit Plan review HEP with neck stretch and nerve glide check BP reassess pt's symptoms and sleep quality overall shoulder mobility ex, strengthening as rebecca
--- NOTE | 2019-07-28 12:10 | PT.OTN ---
Physical Therapy Treatment Note PT-OP-A Visit Information Start: 07/14/19 18:01 Freq: Status: Active Protocol: Document 07/28/19 10:35 HH (Rec: 07/28/19 12:10 [email or web address]) Out-Patient Physical Therapy Visit Information Visit Information Visit Type Treatment Note Visit Start Time 10:35 Visit Stop Time 11:19 Total Visit Minutes 44 Visit Number 3 Number of CARDROOM ATTENDANT Visits 0 PT-OP-B Current Condition Start: 07/14/19 18:01 Freq: Status: Active Protocol: Document 07/14/19 18:25 HH (Rec: 07/14/19 18:36 HH [email or web address]) Current Condition History of Current Condition Onset Date 2 months ago Current Complaints B shoulder pain R>L, radiating arm pain and numbness, disturbed sleep History of Current Condition Pt is a 83yo female that presents to clinic with c/o B shoulder pain R>L, radiating arm pain and numbness, disturbed sleep since 2 months ago. Pt explained she does not know why it started. She described her symptoms is sporadic and only happens during sleep. Her pain often started from top of both shoulders and radiated to top/ bottom of her arms, along with numbness around her 2nd to 4th finger tips. R side seems to be worse and she has to get up and shake it off. She stated her symptoms tend to go away in 10-15 minutes, but also take up to 2 hours occasionally. She tried changing positions/ adding pillows but nothing helped so far. She is overall fairly active who participates bodyweight strengthening class couple times a week. Treatment Goals Patient/Caregiver Goals 1. To have a full night of sleep without waking up 2. To be symptoms free. Personal Factors Other Personal Factors That May Effect Osteopenia, thyroid disorder. Therapy/Recovery PT-OP-C Subjective Start: 07/14/19 18:01 Freq: Status: Active Protocol: Document 07/28/19 10:35 HH (Rec: 07/28/19 12:10 HH [email or web address]) OP-PT Subjective Patient Comments Patient Comments I havent any numbness to my hand for the whole week. And i felt once but my symptoms went away immedaitely after i did my neck stretches. Patient Reported Progress Improving PT-OP-E Functional Tests Start: 07/14/19 18:01 Freq: Status: Active Protocol: Document 07/14/19 18:25 HH (Rec: 07/14/19 18:36 HH [email or web address]) Functional Tests Apley's Scratch Test Action 2- Left T2 Action 2- Right T2 Action 3- Left L1 Action 3- Right L2 PT-OP-H Neuro Start: 07/14/19 18:01 Freq: Status: Active Protocol: Document 07/14/19 13:45 HH (Rec: 07/14/19 18:25 HH [email or web address]) Sensation Evaluation Gross Sensation Gross Sensation WNL Deep Tendon Reflex & Clonus Assessment Deep Tendon Reflex Bilateral Brachioradialis Deep Tendon Reflex 2+ Normal Bilateral Tricep Deep Tendon Reflex 2+ Normal Bilateral Bicep Deep Tendon Reflex 2+ Normal PT-OP-J Posture/Palpation/Skin Start: 07/14/19 18:01 Freq: Status: Active Protocol: Document 07/14/19 13:45 HH (Rec: 07/14/19 18:25 [email or web address]) Posture Evaluation Position Standing Evaluation View Anterior Shoulder Posture (R) Rounded Scapula Posture (R) Protracted PT-OP-K Range of Motion Start: 07/14/19 18:01 Freq: Status: Active Protocol: Document 07/14/19 13:45 HH (Rec: 07/14/19 18:25 HH [email or web address]) Cervical Spine Range of Motion Cervical Spine Active Degrees Testing Position Sitting Comments AROM= WFL without pain overpressure at end range = firm end feel without symptoms Shoulder Goniometric Range of Motion Shoulder Right Active Shoulder ROM WFL Yes Left Active Shoulder ROM WFL Yes Testing Position Sitting PT-OP-L Special Tests Start: 07/14/19 18:01 Freq: Status: Active Protocol: Document 07/14/19 13:45 HH (Rec: 07/14/19 18:25 [email or web address]) Special Tests Cervical Spine Special Tests Upper Limb Tension Test Test Results +ve B (median and radial nerve glide) Comments R worse than L, unable tolerate with head movements. Traction Test Results -ve B Spurling's Test Test Results -ve B Foraminal Compression Test Results -ve B PT-OP-M Strength Start: 07/14/19 18:01 Freq: Status: Active Protocol: Document 07/14/19 13:45 HH (Rec: 07/14/19 18:25 [email or web address]) Cervical Spine Strength Cervical Spine Manual Muscle Testing Testing Position Sitting Flexion (C1-2) 4+ Good+ Extension 4+ Good+ Rotation Left 4+ Good+ Rotation Right 4+ Good+ Shoulder Strength Shoulder Manual Muscle Testing Right Flexion 4+ Good+ Extension 4+ Good+ Abduction (C5) 4+ Good+ Adduction 4+ Good+ Left Flexion 4+ Good+ Extension 4+ Good+ Abduction (C5) 4+ Good+ Adduction 4+ Good+ PT-OP-Q Treatments Start: 07/14/19 18:01 Freq: Status: Active Protocol: Document 07/28/19 10:35 HH (Rec: 07/28/19 12:10 [email or web address]) Cardio Equipment Upper Body Ergometer (UBE) Duration (Minutes) 5 Other warm up Therapeutic Exercises Sitting Exercises OH paramjit Sitting Exercise Name warm up Side bilateral Reps/Minutes 4 mins Comments full shd ROM Standing Exercises CARs for shoulder AROM Side right Equipment Used hands on pt's neck to prevent compensation Reps/Minutes 3 secs x 20 Comments cues for isolated GH AROM CARs for cervical Side bilateral Equipment Used hands on pt's shoulders to prevent compensation Reps/Minutes 3 secs x 20 Comments cues for isolated cervical AROM Manual Therapy Treatment Soft Tissue Mobilization R levator scap Mobilization Type Cross-Friction,Strumming, Sustained Pressure,Trigger Point Release Intensity/Depth Moderate Body Position Sitting Comments with lateral flexion and rotation B UT Mobilization Type Cross-Friction,Sustained Pressure,Trigger Point Release Intensity/Depth Moderate Body Position Sitting Comments with lateral flexion PT-OP-T Assessment and Plan Start: 07/14/19 18:01 Freq: Status: Active Protocol: Document 07/28/19 10:35 HH (Rec: 07/28/19 12:10 [email or web address]) Physical Therapy Assessment Goals Upper limb tension test Impairment +ve ULTT bilaterally Half-Way Goal (LTG) Pt will be negative on bilateral ULTT for both median and radial nerves to reduce her neural sensitivity. LTG Duration 6 weeks Sleep disturbance Impairment Pt is unable to sleep >2 hours a night without pain and numbness Short Term Goal (STG) Pt will be able to sleep >4 hours a night without pain and numbness at her shoulders and arms STG Duration 3 weeks Half-Way Goal (LTG) Pt will be able to sleep >6 hours a night without pain and numbness at her shoulders and arms LTG Duration 6 weeks Quickdash Impairment Pt scores 45.45 (40-59% impairments) on Quickdash Short Term Goal (STG) Pt will score <30 on quickdash to improve quality of life STG Duration 3 weeks Systems Support Engineer Goal (LTG) Pt will score <20 on quickdash to improve quality of life LTG Duration 6 weeks Assessment Summary Assessment Pt has significant improvements since IE. Currently did not have any numbness in hand during sleep. Pt did show excessive UT engagement and trunk rotation during CARs for C/S and GH. Used manual assistance to prevent compensation. Pt felt very good with improved c/s R rotation after STM on UT and levator scap. Added CARs to her HEP. Might D/C pt from PT in 2 weeks Physical Therapy Plan Next Visit Focus/Plan Next Note Type Treatment Note Next Visit Plan review HEP with neck stretch and nerve glide, CARs check BP reassess pt's symptoms and sleep quality overall shoulder mobility ex, strengthening as rebecca
--- NOTE | 2019-08-05 13:49 | PT.OTN ---
Current Diagnoses Radiculopathy, site unspecified (08/05/19) Physical Therapy Treatment Note PT-OP-A Visit Information Start: 07/14/19 18:01 Freq: Status: Active Protocol: Document 08/05/19 13:42 HH (Rec: 08/05/19 13:49 HH [email or web address]) Out-Patient Physical Therapy Visit Information Visit Information Visit Type Treatment Note Visit Start Time 13:00 Visit Stop Time 13:45 Total Visit Minutes 45 Visit Number 02/20 Number of ORACLE E BUSINESS DEVELOPER Visits 0 PT-OP-B Current Condition Start: 07/14/19 18:01 Freq: Status: Active Protocol: Document 07/14/19 18:25 HH (Rec: 07/14/19 18:36 HH [email or web address]) Current Condition History of Current Condition Onset Date 2 months ago Current Complaints B shoulder pain R>L, radiating arm pain and numbness, disturbed sleep History of Current Condition Pt is a 83yo female that presents to clinic with c/o B shoulder pain R>L, radiating arm pain and numbness, disturbed sleep since 2 months ago. Pt explained she does not know why it started. She described her symptoms is sporadic and only happens during sleep. Her pain often started from top of both shoulders and radiated to top/ bottom of her arms, along with numbness around her 2nd to 4th finger tips. R side seems to be worse and she has to get up and shake it off. She stated her symptoms tend to go away in 10-15 minutes, but also take up to 2 hours occasionally. She tried changing positions/ adding pillows but nothing helped so far. She is overall fairly active who participates bodyweight strengthening class couple times a week. Treatment Goals Patient/Caregiver Goals 1. To have a full night of sleep without waking up 2. To be symptoms free. Personal Factors Other Personal Factors That May Effect Osteopenia, thyroid disorder. Therapy/Recovery PT-OP-C Subjective Start: 07/14/19 18:01 Freq: Status: Active Protocol: Document 08/05/19 13:42 HH (Rec: 08/05/19 13:49 HH [email or web address]) OP-PT Subjective Patient Comments Patient Comments My R arm numbness is getting less and going away quicker. But i still feel some bicep pain while working out. Patient Reported Progress Improving PT-OP-E Functional Tests Start: 07/14/19 18:01 Freq: Status: Active Protocol: Document 07/14/19 18:25 HH (Rec: 07/14/19 18:36 HH [email or web address]) Functional Tests Apley's Scratch Test Action 2- Left T2 Action 2- Right T2 Action 3- Left L1 Action 3- Right L2 PT-OP-H Neuro Start: 07/14/19 18:01 Freq: Status: Active Protocol: Document 07/14/19 13:45 HH (Rec: 07/14/19 18:25 HH [email or web address]) Sensation Evaluation Gross Sensation Gross Sensation WNL Deep Tendon Reflex & Clonus Assessment Deep Tendon Reflex Bilateral Brachioradialis Deep Tendon Reflex 2+ Normal Bilateral Tricep Deep Tendon Reflex 2+ Normal Bilateral Bicep Deep Tendon Reflex 2+ Normal PT-OP-J Posture/Palpation/Skin Start: 07/14/19 18:01 Freq: Status: Active Protocol: Document 07/14/19 13:45 HH (Rec: 07/14/19 18:25 HH [email or web address]) Posture Evaluation Position Standing Evaluation View Anterior Shoulder Posture (R) Rounded Scapula Posture (R) Protracted PT-OP-K Range of Motion Start: 07/14/19 18:01 Freq: Status: Active Protocol: Document 07/14/19 13:45 HH (Rec: 07/14/19 18:25 [email or web address]) Cervical Spine Range of Motion Cervical Spine Active Degrees Testing Position Sitting Comments AROM= WFL without pain overpressure at end range = firm end feel without symptoms Shoulder Goniometric Range of Motion Shoulder Right Active Shoulder ROM WFL Yes Left Active Shoulder ROM WFL Yes Testing Position Sitting PT-OP-L Special Tests Start: 07/14/19 18:01 Freq: Status: Active Protocol: Document 07/14/19 13:45 HH (Rec: 07/14/19 18:25 HH [email or web address]) Special Tests Cervical Spine Special Tests Upper Limb Tension Test Test Results +ve B (median and radial nerve glide) Comments R worse than L, unable tolerate with head movements. Traction Test Results -ve B Spurling's Test Test Results -ve B Foraminal Compression Test Results -ve B PT-OP-M Strength Start: 07/14/19 18:01 Freq: Status: Active Protocol: Document 07/14/19 13:45 HH (Rec: 07/14/19 18:25 [email or web address]) Cervical Spine Strength Cervical Spine Manual Muscle Testing Testing Position Sitting Flexion (C1-2) 4+ Good+ Extension 4+ Good+ Rotation Left 4+ Good+ Rotation Right 4+ Good+ Shoulder Strength Shoulder Manual Muscle Testing Right Flexion 4+ Good+ Extension 4+ Good+ Abduction (C5) 4+ Good+ Adduction 4+ Good+ Left Flexion 4+ Good+ Extension 4+ Good+ Abduction (C5) 4+ Good+ Adduction 4+ Good+ PT-OP-Q Treatments Start: 07/14/19 18:01 Freq: Status: Active Protocol: Document 08/05/19 13:42 (Rec: 08/05/19 13:49 [email or web address]) Cardio Equipment Upper Body Ergometer (UBE) Duration (Minutes) 5 Other warm up Therapeutic Exercises Sidelying Exercises SL open book Side right Reps/Minutes 12 x 2 Comments cues on neutral spine without rotation Standing Exercises CARs for shoulder AROM Side bilateral Resistance 2 lbs Equipment Used hands on pt's neck to prevent compensation Reps/Minutes 6 circles x 4 Comments cues for isolated GH AROM CARs for cervical Side bilateral Resistance 3 lbs Equipment Used hands on pt's shoulders to prevent compensation Reps/Minutes 6 circles x 4 Comments cues on isolated cervical AROM Manual Therapy Treatment Soft Tissue Mobilization R biceps Body Location R bicep belly. Mobilization Type Sustained Pressure,Trigger Point Release Intensity/Depth Moderate Body Position Supine R levator scap Mobilization Type Cross-Friction,Strumming, Sustained Pressure,Trigger Point Release Intensity/Depth Moderate Body Position Sitting Comments with lateral flexion and rotation Nerve Glides Median nerve glide Nerve hand against wall (hand in horizontal position) Details slow cervical lateral flexion Body Position Standing Reps/Duration 10 mins Comments nerve glide as rebecca with cervical rotation to the left. PT-OP-T Assessment and Plan Start: 07/14/19 18:01 Freq: Status: Active Protocol: Document 08/05/19 13:42 (Rec: 08/05/19 13:49 [email or web address]) Physical Therapy Assessment Goals Upper limb tension test Impairment +ve ULTT bilaterally Fpc Goal (LTG) Pt will be negative on bilateral ULTT for both median and radial nerves to reduce her neural sensitivity. LTG Duration 6 weeks Sleep disturbance Impairment Pt is unable to sleep >2 hours a night without pain and numbness Short Term Goal (STG) Pt will be able to sleep >4 hours a night without pain and numbness at her shoulders and arms STG Duration 3 weeks Fruit Harvest Machine Operator Goal (LTG) Pt will be able to sleep >6 hours a night without pain and numbness at her shoulders and arms LTG Duration 6 weeks Quickdash Impairment Pt scores 45.45 (40-59% impairments) on Quickdash Short Term Goal (STG) Pt will score <30 on quickdash to improve quality of life STG Duration 3 weeks Fruit Harvest Machine Operator Goal (LTG) Pt will score <20 on quickdash to improve quality of life LTG Duration 6 weeks Assessment Summary Assessment Pt's neurological symptoms have improved. Pt cont to have difficulty with isolated cervical/ GH AROM and needed cues to facilitate. Pt's bicep pain mostly is due to a strain from her bicep curl workout. Pt stated her bicep is slowly getting better and able to lift more again ( noticeable muscle nodules at muscle belly). Educated her on exercise progression. Physical Therapy Plan Next Visit Focus/Plan Next Note Type Treatment Note Next Visit Plan review HEP with neck stretch and nerve glide, CARs check BP trunk mobility( open book) trunk ext scap strengthening reassess pt's symptoms and sleep quality overall shoulder mobility ex, strengthening as rebecca
--- NOTE | 2019-08-12 13:45 | PT.OTN ---
Current Diagnoses Radiculopathy, site unspecified (08/12/19) Physical Therapy Treatment Note PT-OP-A Visit Information Start: 07/14/19 18:01 Freq: Status: Active Protocol: Document 08/12/19 13:00 HH (Rec: 08/12/19 13:45 HH [email or web address]) Out-Patient Physical Therapy Visit Information Visit Information Visit Type Treatment Note Visit Start Time 13:00 Visit Stop Time 13:40 Total Visit Minutes 40 Visit Number 03/22 Number of PRINCIPAL SCIENTIST Visits 0 PT-OP-B Current Condition Start: 07/14/19 18:01 Freq: Status: Active Protocol: Document 07/14/19 18:25 HH (Rec: 07/14/19 18:36 HH [email or web address]) Current Condition History of Current Condition Onset Date 2 months ago Current Complaints B shoulder pain R>L, radiating arm pain and numbness, disturbed sleep History of Current Condition Pt is a 83yo female that presents to clinic with c/o B shoulder pain R>L, radiating arm pain and numbness, disturbed sleep since 2 months ago. Pt explained she does not know why it started. She described her symptoms is sporadic and only happens during sleep. Her pain often started from top of both shoulders and radiated to top/ bottom of her arms, along with numbness around her 2nd to 4th finger tips. R side seems to be worse and she has to get up and shake it off. She stated her symptoms tend to go away in 10-15 minutes, but also take up to 2 hours occasionally. She tried changing positions/ adding pillows but nothing helped so far. She is overall fairly active who participates bodyweight strengthening class couple times a week. Treatment Goals Patient/Caregiver Goals 1. To have a full night of sleep without waking up 2. To be symptoms free. Personal Factors Other Personal Factors That May Effect Osteopenia, thyroid disorder. Therapy/Recovery PT-OP-C Subjective Start: 07/14/19 18:01 Freq: Status: Active Protocol: Document 08/12/19 13:00 HH (Rec: 08/12/19 13:45 HH [email or web address]) OP-PT Subjective Patient Comments Patient Comments Im getting better with less numbness. Ayesha been doing all my exercises as well. Patient Reported Progress Improving PT-OP-E Functional Tests Start: 07/14/19 18:01 Freq: Status: Active Protocol: Document 07/14/19 18:25 HH (Rec: 07/14/19 18:36 HH [email or web address]) Functional Tests Apley's Scratch Test Action 2- Left T2 Action 2- Right T2 Action 3- Left L1 Action 3- Right L2 PT-OP-H Neuro Start: 07/14/19 18:01 Freq: Status: Active Protocol: Document 07/14/19 13:45 HH (Rec: 07/14/19 18:25 HH [email or web address]) Sensation Evaluation Gross Sensation Gross Sensation WNL Deep Tendon Reflex & Clonus Assessment Deep Tendon Reflex Bilateral Brachioradialis Deep Tendon Reflex 2+ Normal Bilateral Tricep Deep Tendon Reflex 2+ Normal Bilateral Bicep Deep Tendon Reflex 2+ Normal PT-OP-J Posture/Palpation/Skin Start: 07/14/19 18:01 Freq: Status: Active Protocol: Document 07/14/19 13:45 HH (Rec: 07/14/19 18:25 HH [email or web address]) Posture Evaluation Position Standing Evaluation View Anterior Shoulder Posture (R) Rounded Scapula Posture (R) Protracted PT-OP-K Range of Motion Start: 07/14/19 18:01 Freq: Status: Active Protocol: Document 07/14/19 13:45 HH (Rec: 07/14/19 18:25 HH [email or web address]) Cervical Spine Range of Motion Cervical Spine Active Degrees Testing Position Sitting Comments AROM= WFL without pain overpressure at end range = firm end feel without symptoms Shoulder Goniometric Range of Motion Shoulder Right Active Shoulder ROM WFL Yes Left Active Shoulder ROM WFL Yes Testing Position Sitting PT-OP-L Special Tests Start: 07/14/19 18:01 Freq: Status: Active Protocol: Document 07/14/19 13:45 HH (Rec: 07/14/19 18:25 HH [email or web address]) Special Tests Cervical Spine Special Tests Upper Limb Tension Test Test Results +ve B (median and radial nerve glide) Comments R worse than L, unable tolerate with head movements. Traction Test Results -ve B Spurling's Test Test Results -ve B Foraminal Compression Test Results -ve B PT-OP-M Strength Start: 07/14/19 18:01 Freq: Status: Active Protocol: Document 07/14/19 13:45 HH (Rec: 07/14/19 18:25 HH [email or web address]) Cervical Spine Strength Cervical Spine Manual Muscle Testing Testing Position Sitting Flexion (C1-2) 4+ Good+ Extension 4+ Good+ Rotation Left 4+ Good+ Rotation Right 4+ Good+ Shoulder Strength Shoulder Manual Muscle Testing Right Flexion 4+ Good+ Extension 4+ Good+ Abduction (C5) 4+ Good+ Adduction 4+ Good+ Left Flexion 4+ Good+ Extension 4+ Good+ Abduction (C5) 4+ Good+ Adduction 4+ Good+ PT-OP-Q Treatments Start: 07/14/19 18:01 Freq: Status: Active Protocol: Document 08/12/19 13:00 (Rec: 08/12/19 13:45 [email or web address]) Cardio Equipment Upper Body Ergometer (UBE) Duration (Minutes) 5 Other warm up Gym Equipment Cable Column (Body Solid) scap row Resistance 20lbs x 10 x 2 Therapeutic Exercises Sidelying Exercises SL open book Side right Reps/Minutes 12 x 2 Comments cues on neutral spine without rotation Standing Exercises wall glide Side bilateral Reps/Minutes 8 x 3 Comments back against wall with shd abduction CARs for shoulder AROM Side right Equipment Used hands on pt's neck to prevent compensation Reps/Minutes 3 secs x 20 Comments cues for isolated GH AROM CARs for cervical Side bilateral Equipment Used hands on pt's shoulders to prevent compensation Reps/Minutes 3 secs x 20 Comments cues for isolated cervical AROM Manual Therapy Treatment Nerve Glides Median nerve glide Nerve hand against wall (hand in horizontal position) Details slow cervical lateral flexion Body Position Standing Reps/Duration 10 mins Comments nerve glide as rebecca with cervical rotation to the left. PT-OP-T Assessment and Plan Start: 07/14/19 18:01 Freq: Status: Active Protocol: Document 08/12/19 13:00 (Rec: 08/12/19 13:45 [email or web address]) Physical Therapy Assessment Goals Upper limb tension test Impairment +ve ULTT bilaterally Intermediate Goal (LTG) goal met; 08/12 pt does not c/o pain/ symptoms at her R hand with UTTT Pt will be negative on bilateral ULTT for both median and radial nerves to reduce her neural sensitivity. Sleep disturbance Milk Receiver Goal (LTG) Goal met: 08/12 pt reports she has improved sleep and minimal discomfort from hand numbness recently. Quickdash Intermediate Goal (LTG) 08/12 did not assess Assessment Summary Assessment Pt has showed significant improvements on neural sensitivity, active cervical ROM and shd ROM. Pt has decreased UT engagement during cervical movements today. Added wall angle to HEP. Pt requested to be d/c due to improved rehab progress. Physical Therapy Plan Discharge Physical Therapy Discharge Reasons Goals Met
== END 2019-08-12 14:00 ==
LOC: PHYS 13:00
PROVIDERS: PCP Nurse Practitioner; Visit Provider Nurse Practitioner
DX: M54.10 Radiculopathy, site unspecified (principal)
CPT/HCPCS: 97110; 97140; 97161

== ENCOUNTER → 2024-01-23 11:39 | Outpatient (CLI) | payer MEDICARE, OTHER, SELFPAY ==
--- NOTE | 2024-01-23 | DI.MG.S_ITS ---
BILATERAL DIGITAL SCREENING MAMMOGRAM 3D/2D WITH CAD: 01/23/2024 CLINICAL: Routine screening. Comparison is made to exams dated: 07/12/2022 mammogram, 06/25/2019 mammogram, and 06/24/2018 mammogram - [facility]. There are scattered areas of fibroglandular density in both breasts (category b / 25%-50% glandular tissue). Current study was also evaluated with a Computer Aided Detection (CAD) system. There are benign calcifications in the right breast. There also are benign vascular calcifications in the left breast. No significant masses, calcifications, or other findings are seen in either breast. There has been no significant interval change. IMPRESSION: BENIGN There is no mammographic evidence of malignancy. A 1 year screening mammogram is recommended. This exam was interpreted at Station ID: [id number]. NOTE: For mammograms, a report in lay terms will be sent to the patient. Approximately 15% of breast malignancies will not be visualized mammographically. In the management of a palpable breast mass, a negative mammogram must not discourage biopsy of a clinically suspicious lesion. Electronically Signed By: Freddy pichardo/nick:01/23/2024 14:06:13 letter sent: Normal Exam ACR BI-RADS Category 2: Benign Finding(s) [id number]
== END ==
LOC: MAMMO 11:42
PROVIDERS: PCP Nurse Practitioner; Referring Provider Nurse Practitioner; Visit Provider Nurse Practitioner
DX: Z12.31 Encounter for screening mammogram for malignant neoplasm of breast (principal); R92.323 Mammographic fibroglandular density, bilateral breasts
CPT/HCPCS: 77063; 77067